=== PATIENT | male | born 1970 | race Caucasian/White ===

== ENCOUNTER → 2018-05-11 | Outpatient (CLI) | payer OTHER ==
[~2018-05-11] MED LIST: HYDR2TAB74 PO; ORP100 PO; PRED20TA6 PO
[2018-05-11 10:01] LABS: LDL CHOLESTEROL 165 mg/dl
== END ==
LOC: LAB 08:05
DX: E23.0 Hypopituitarism (principal); E34.9 Endocrine disorder, unspecified; E29.1 Testicular hypofunction; R53.83 Other fatigue
CPT/HCPCS: 36415; 82040; 82247; 82306; 82310; 82374; 82435; 82465; 82565; 82607; 82627; 82670; 82947; 83090; 83718; 84075; 84132; 84146; 84153; 84155; 84270; 84295; 84305; 84403; 84439; 84443; 84450; 84460; 84478; 84481; 84520; 85027

== ENCOUNTER → 2018-05-24 | Outpatient (CLI) | payer OTHER ==
[~2018-05-24] MED LIST changes: +ARMO150T4 PO; +MULT1CAP59 PO; +OMEG-11 PO; +SILD100T59 PO; +TURM500C4
== END ==
LOC: LAB 07:43
PROVIDERS: ATTEND Emergency Medicine
DX: E29.1 Testicular hypofunction (principal)
CPT/HCPCS: 36415; 82607; 83001; 83002; 83540; 83550; 84402; 84403

== ENCOUNTER → 2018-05-27 | Outpatient (CLI) | payer OTHER | LOC: LAB 12:39 | PROVIDERS: ATTEND Emergency Medicine | DX: R79.0 Abnormal level of blood mineral (principal) | CPT/HCPCS: 36415; 81256 ==

== ENCOUNTER → 2018-07-20 | Outpatient (CLI) | payer OTHER ==
[~2018-07-20] MED LIST changes: +TRAM-420 PO
--- NOTE | 2018-07-20 13:05 | RADIOLOGY IMAGING REPORT ---
FACILITY: [facility] PATIENT NAME: Sarwat Bear : 1970 MR: [id number] V: [id number] EXAM DATE: ORDERING PHYSICIAN: THEO HINOJOSA TECHNOLOGIST: Location: [facility] Patient: Sarwat Bear : 1970 Visit/Account:[id number] Date of Sevice: 07/20/2018 HIP RIGHT Indication: Hip pain for two months, history of surgery Comparison: None available Findings: There is no acute fracture or dislocation of the right hip. There are periarticular calcifications present. Mild irregularity is noted along the lateral aspect of the femoral head. The joint spaces otherwise intact. IMPRESSION: 1. Mild irregularity of the femoral head with small periarticular calcifications. This may be relat ed to prior surgery or trauma. No acute abnormality noted Report Dictated By: Bryan Kam at 07/20/2018 1:00 PM Report E-Signed By: Bryan Kam at 07/20/2018 1:01 PM WSN:[id number]
== END ==
LOC: RAD 10:22
PROVIDERS: ATTEND Nurse Practitioner Primary Care
DX: M25.551 Pain in right hip (principal)

== ENCOUNTER → 2018-08-04 | Outpatient (CLI) | payer OTHER ==
[2018-08-04 11:27] LABS: PLATELET COUNT, AUTOMATED 290 K/uL (150-450)
== END ==
LOC: LAB 11:03
PROVIDERS: ATTEND Emergency Medicine
DX: E78.00 Pure hypercholesterolemia, unspecified (principal); R79.0 Abnormal level of blood mineral
CPT/HCPCS: 36415; 82465; 82728; 83540; 83550; 83718; 84478; 85025